=== PATIENT | female | born 1940 | race Caucasian/White ===

== ENCOUNTER 2017-02-17 05:59 | Inpatient (IN) | payer MEDICARE ==
[2017-02-12 16:40] LABS: BASOPHILS 0.3 %; BASOPHILS ABSOLUTE 0.02 10/3/uL (0.0-0.16); EOSINOPHILS 4.6 %; EOSINOPHILS ABSOLUTE 0.32 10/3/uL (0.0-0.53); HEMATOCRIT 45.7 % (36.0-48.0); HEMOGLOBIN 15.2 g/dL (12.0-16.0); IMMATURE GRANULOCYTES 0.1 %; IMMATURE GRANULOCYTES ABSOLUTE 0.01 10/3/uL (0.0-0.11); LYMPHOCYTES 32.7 %; LYMPHOCYTES ABSOLUTE 2.27 10/3/uL (0.67-4.30); MANUAL DIFF NO %; MEAN CORPUS HGB CONC 33.3 g/dL (32.0-36.0); MEAN CORPUSCULAR HEMOGLOB 31.1 pg (26.0-34.0); MEAN CORPUSCULAR VOLUME 93.5 fL (80-100); MEAN PLATELET VOLUME 10.3 fL (9.2-13.0); MONOCYTES 11.9 %; MONOCYTES ABSOLUTE 0.83 10/3/uL (0.21-1.20); NEUTROPHILS 50.4 %; PLATELET COUNT 294 10/3/uL (150-400); RBC DISTRIBUTION WIDTH 13.3 % (12.0-16.0); RED CELL COUNT 4.89 10/6/uL (4.0-5.6)
[2017-02-12 16:53] LABS: PARTIAL THROMBO TIME 30.8 SEC (22.5-37.2); PROTIME (NOT ORD) 13.4 SEC (12.0-14.5)
[2017-02-12 17:02] LABS: A/G RATIO 1.1 (0.7-1.9); ALKALINE PHOSPHATASE 57 U/L (45-117); BUN (BLOOD UREA NITROGEN) 18 MG/DL (6-23); CALCIUM, SERUM 9.6 MG/DL (8.5-10.4); CHLORIDE, SERUM 105 MMOL/L (96-112); CO2 (CARBON DIOXIDE) 29 MMOL/L (24-34); CREATININE 0.92 MG/DL (0.55-1.02); GFR AFRICAN AMERICAN 71 ML/MIN (>=60); GFR NON AFRICAN AMERICAN 61 ML/MIN (>=60); GLOBULIN 3.6 G/DL (2.5-4.1); GLUCOSE, SERUM 94 MG/DL (60-99); SGOT(AST) 29 U/L (5-40); SGPT(ALT) 22 U/L (5-65); SODIUM, SERUM 141 MMOL/L (135-148); TOTAL BILIRUBIN 0.6 MG/DL (0-1.2); TOTAL PROTEIN 7.6 G/DL (6.0-8.5)
[2017-02-12 19:39] LABS: ASCORBIC ACID (UR NOT ORDER) NEG (NEG); BILIRUBIN, URINE NEGATIVE (NEG); KETONE, URINE NEGATIVE (NEG); LEUKOCYTE ESTERASE(NOT OR SMALL (NEG); WBC (NOT ORDERED) (RFLEX) 4 (0-5)
[~2017-02-17] VITALS: Ht 162.6 cm; Wt 81.6 kg
--- NOTE | ~2017-02-17 | OP ---
Record Of Operation [facility] [address] [place]. [address] NAME: EFRA WESLEY : 42 STATUS : ADM IN PAT#: [id number] AGE: 76 ADM/REG DATE : 02/17/17 MR#: [id number] REPORT SERV DATE: 02/17/17 DICTATED BY: DEE PARISI DATE: 02/17/17 REPORT STATUS : Draft TRANSCRIBED BY: MODL DATE: 02/17/17 DATE OF PROCEDURE: 02/17/2017 PREOPERATIVE DIAGNOSIS: Right four-part fracture malunion with AVN. POSTOPERATIVE DIAGNOSIS: Right four-part fracture malunion with AVN. PROCEDURE: Right reverse shoulder arthroplasty. COMPLICATIONS: None. ANESTHESIA: General endotracheal with regional block. INDICATIONS: 76-year-old female, who had failed nonoperative management of the above- mentioned fracture. She had this subsided, and had AVN, and severe pain, with tuberosity malunion. I discussed risks, benefits, and alternatives. The patient verbalized understanding and wished to proceed. DESCRIPTION OF PROCEDURE: The patient was induced in the supine position. She was taken to the beach-chair position with care to maintain cervical lordosis. A time-out protocol was enforced. Ancef was administered. Her extremity was prepped and draped in a standard surgical fashion. The deltopectoral approach was utilized. We took the cephalic vein laterally and dissected the subdeltoid adhesions. The pectoralis was released 1 cm from its insertion. The biceps tenodesed with soft tissue, it was a soft tissue tenodesed in the groove. There were an obvious malunion in varus. We placed a Rea retractor and performed a peel technique on the subscap, which was essentially an intact lesser tuberosity fragment, retracted medially. We tagged that with an Ethibond. It was clear that she had a large piece of the tuberosity malunited quite posterior and I felt this could block reduction. 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 We debrided it with rongeurs and removed some of the upper supraspinatus. We then placed the original stem in 20 of retroversion and removed the excess bone that was going to block reduction, as this was a champagne flute type canal. I then palpated posteriorly and I could feel the tuberosity, I could feel the fibrous plane between the shaft and the tuberosity. We used an osteotome to break that up and this allowed the shaft to migrate background investigator to anatomic position. A Fukuda retractor was then placed. We carefully dissected the inferior capsule and the severely macerated labrum circumferentially around the glenoid, releasing posteriorly and anteriorly the scar. We placed a 15 mm base plate, trabecular metal with 36 mm screws and we were able to achieve excellent purchase. Locking screws were placed and the 36 glenosphere was placed. We then turned our attention back to the humerus. We trialed a 0, which was satisfactory. We placed FiberWires around the stem and impacted in 20 degrees of retroversion with a 0 poly. This had good stability when we reduced it. We then were able to bring the lesser tuberosity fracture fragment back into near anatomic position and Record Of Operation [facility] [id number] [place]. [address] NAME: EFRA WESLEY HALEIWA : 42 STATUS : ADM IN PAT#: [id number] AGE: 76 ADM/REG DATE : 02/17/17 MR#: [id number] REPORT SERV DATE: 02/17/17 DICTATED BY: DEE PARISI. DATE: 02/17/17 REPORT STATUS : Draft TRANSCRIBED BY: JASPER DATE: 02/17/17 secured it with FiberWires as well as FiberWire sutures securing the greater tuberosity. We irrigated with pulsatile lavage, tranexamic acid. Hemovac drain was placed. Wound was closed in layers. The patient tolerated the procedure well and was taken to the PACU in stable condition. POSTOP PLAN: Elbow range of motion, pendulums only, sling for six weeks, reverse shoulder protocol. BSS/MODL Dee Parisi M.D. / [id number] CC: Dee Parisi M.D.
[~2017-02-17 05:59] MED LIST: CALTRA600D PO; CO Q-10100 MG PO; COZ50 PO; EYE VITAMIN PO; FLONASE NAS; KLOR-CON M2020 MEQ PO; LOFIB160 PO; MAG OXIDE250 MG PO; MURO5OOIN OPH; PRILO PO; PROAIR HFA INH; SINGULAIR1 PO; ULTRACET PO; ZETIA PO; ZYRTEC ALLGY10 MG PO
[2017-02-18 05:26] LABS: HEMATOCRIT 41.2 % (36.0-48.0); HEMOGLOBIN 13.5 g/dL (12.0-16.0)
[2017-02-18 05:28] LABS: CALCIUM, SERUM 8.9 MG/DL (8.5-10.4); CHLORIDE, SERUM 109 MMOL/L (96-112); CREATININE 0.77 MG/DL (0.55-1.02); GFR AFRICAN AMERICAN 88 ML/MIN (>=60); GFR NON AFRICAN AMERICAN 76 ML/MIN (>=60); SODIUM, SERUM 141 MMOL/L (135-148)
[2017-02-18 05:29] LABS: BUN (BLOOD UREA NITROGEN) 13 MG/DL (6-23); CO2 (CARBON DIOXIDE) 23 MMOL/L (24-34); GLUCOSE, SERUM 126 MG/DL (60-99); POTASSIUM, SERUM 4.7 MMOL/L (3.5-5.3)
[2017-02-18] MEDS ORDERED: PERCOCET 7.5/321 TAB PO (08:39)
[2017-02-18] MEDS ORDERED: ELIQUIS 2.5 MG2.5 MG PO (08:39)
[2017-02-18] MEDS ORDERED: PR25 PO (08:40)
== END 2017-02-19 13:06 | disposition home or self-care (01) | DRG 483 ==
LOC: ENRESERV → ENRESERVTM → ENRESERVDT → SDC/OF 05:59 → 3SO 05:59 → PACU 12:25 → 3SO 13:23
PROVIDERS: Orthopaedic Surgery Sports Medicine
PROC: 0RRJ00Z Replacement of Right Shoulder Joint with Reverse Ball and Socket Synthetic Substitute, Open Approach (ICD-10-PCS; principal; 2017-02-17 08:15)
DX: S42.201P Unspecified fracture of upper end of right humerus, subsequent encounter for fracture with malunion (principal); J44.9 Chronic obstructive pulmonary disease, unspecified; M87.21 Osteonecrosis due to previous trauma, shoulder; W18.2XXD Fall in (into) shower or empty bathtub, subsequent encounter; M19.90 Unspecified osteoarthritis, unspecified site; I10 Essential (primary) hypertension; E78.5 Hyperlipidemia, unspecified; K21.9 Gastro-esophageal reflux disease without esophagitis; M81.0 Age-related osteoporosis without current pathological fracture; Z96.652 Presence of left artificial knee joint; E66.9 Obesity, unspecified; Z88.5 Allergy status to narcotic agent; Z88.6 Allergy status to analgesic agent; Z88.0 Allergy status to penicillin; Z88.2 Allergy status to sulfonamides
CPT/HCPCS: 36415; 73030-RT; 80048; 80053; 81001; 85014; 85018; 85025; 85610; 85730; 86850; 86900; 86901; 87086; 87641; 88305; 88311; 93005; 97110-GP; 97116-GP; 97161-GP; A9270-GY; C1713; C1776; G8978-CK-GP; G8979-CH-GP; J0690; J2250; J2270; J2370; J2405; J2710; J2795; J3010